=== PATIENT | female | born 1995 | race Caucasian/White ===

== ENCOUNTER 2018-01-12 02:29 | Emergency (ER) | payer OTHER ==
[~2018-01-12] VITALS: Ht 157.5 cm; Wt 52.2 kg
[2018-01-12] MEDS ORDERED: ACTIVATED CHARCOAL 50 GM/240 ML SOL PO ONE (03:00)
[2018-01-12 03:07] LABS: Urine Bacteria NONE SEEN /hpf (None Seen); Urine Blood Negative /uL (Negative); Urine Specific Gravity 1.002 (1.001-1.035); Urine WBC 1 /hpf (0 - 5)
[2018-01-12 03:57] LABS: Basophils # (auto) 0.1 uL; Basophils % (auto) 0.5 % (0.0-2.0); Eosinophils # (auto) 0 uL; Eosinophils % (auto) 0.3 % (0.0-7.0); Hematocrit 43.4 % (36.0-46.0); Hemoglobin 14.4 g/dL (12.2-16.2); Lymphocytes # (auto) 2.4 uL; Lymphocytes % (auto) 23.1 % (10.0-50.0); Mean Corpuscular Hemoglobin 29.3 pg (28.0-32.0); Mean Corpuscular Hgb Conc. 33.3 g/dL (32.0-36.0); Monocytes # (auto) 0.7 uL; Monocytes % (auto) 6.8 % (0.0-12.0); Neutrophils # (auto) 7.3 uL; Neutrophils % (auto) 69.3 % (37.0-80.0); Platelet Count (auto) 269 10^3/uL (140-450); Red Blood Cells 4.93 10^6/uL (4.0-5.20); Red Cell Distribution Width 13.5 % (11.8-14.3); White Blood Cell 10.6 10^3/uL (4.4-10.8)
[2018-01-12 04:20] LABS: Albumin 3.9 g/dL (3.4-5.0); BUN/Creatinine Ratio 10.7; Calcium 8.2 mg/dL (8.5-10.1); Potassium 3.5 mmol/L (3.5-5.1)
[2018-01-12 04:23] LABS: Bilirubin, Total 0.2 mg/dL (0.2-1.0); Total Protein 7.7 g/dL (6.4-8.2)
[2018-01-12 04:24] LABS: Salicylate < 1.7 mg/dL (2.8-20.0)
[2018-01-12 04:29] LABS: Acetaminophen < 2.0 ug/mL (10-30)
[2018-01-12 07:13] LABS: Amphetamine Screen, Urine NEGATIVE (NEGATIVE); Barbiturate Scree,Urine NEGATIVE (NEGATIVE); Benzodiazephine Screen, Urine POSITIVE (NEGATIVE); Cannabinoid Screen, Urine POSITIVE (NEGATIVE); Opiate Scree,Urine NEGATIVE (NEGATIVE); Phencyclidine Screen, Urine NEGATIVE (NEGATIVE)
[2018-01-12 07:21] LABS: Cocaine Screen, Urine NEGATIVE (NEGATIVE)
[2018-01-12] MEDS ORDERED: SODIUM CHLORIDE 0.9% 1,000 ML IV ONE (07:40)
[2018-01-12 08:34] LABS: Beta HCG, Quantitative < 1 mlU/mL (1-3)
[2018-01-12 08:39] LABS: Thyroid Stimulating Hormone 0.55 uIU/mL (0.358-3.74)
[2018-01-12] MEDS ORDERED: SERTRALINE HCL 50 MG TAB PO ONE (17:45)
[2018-01-12] MEDS ORDERED: traZODone HCL 50 MG TAB PO ONE (17:45)
[2018-01-12] MEDS ORDERED: LORazepam 0.5 MG TAB PO ONE (22:00)
[2018-01-12] MEDS: LORazepam 0.5 MG TAB PO SCH (22:00)
[2018-01-13] MEDS: LORazepam 0.5 MG TAB PO SCH (00:25)
[2018-01-13 07:55] VITALS: BP 108/78
== END 2018-01-13 08:12 | disposition short-term general hospital (02) ==
LOC: ER 02:29 → EDUNIT# 02:29 → ER 01-13 08:12
DX: T42.4X1A Poisoning by benzodiazepines, accidental (unintentional), initial encounter (principal); F32.9 Major depressive disorder, single episode, unspecified; F12.10 Cannabis abuse, uncomplicated; F10.10 Alcohol abuse, uncomplicated; F17.210 Nicotine dependence, cigarettes, uncomplicated; F41.9 Anxiety disorder, unspecified; Y92.89 Other specified places as the place of occurrence of the external cause
CPT/HCPCS: 36415; 71046; 80053; 80307; 80320; 80329; 81001; 83735; 84443; 84702; 85025; 94761; 99285; J7030